=== PATIENT | male | born 1985 | race Caucasian/White ===

== ENCOUNTER 2023-11-14 23:33 | Emergency (ER) | payer SELFPAY ==
[~2023-11-14] VITALS: Ht 180.3 cm; Wt 150.0 kg
[2023-11-14 23:35] VITALS: O2SAT 97
[2023-11-15 08:17] VITALS: BP 150/88; PULSE 65; RESP 14; TEMP 36.83628; O2SAT 97
[2023-11-15] MEDS: LIDOCAINE HCL/PF 1% 10 MG/ML 5ML VIAL INFIL ONE (09:41)
[2023-11-15] MEDS: IBUPROFEN 600MG TABLET PO ONE (09:41)
[2023-11-15] MEDS: TETANUS, DIPHTHERIA, PERTUSSIS VAC/PF 0.5ML (>10YR OLD) IM ONE (09:46)
[2023-11-15] MEDS: BACITRACIN ZINC OINT UDPKT TOP ONE (09:49)
[2023-11-15] MEDS ORDERED: CEPH500C2 MT (10:28)
[2023-11-15] MEDS ORDERED: T3 PO (10:28)
[2023-11-15] MEDS: ACETAMINOPHEN WITH CODEINE 300/30MG TABLET PO NR (10:43)
== END 2023-11-15 10:58 | disposition home or self-care (01) ==
LOC: ER 23:33
DX: S61.212A Laceration without foreign body of right middle finger without damage to nail, initial encounter (principal); W26.8XXA Contact with other sharp object(s), not elsewhere classified, initial encounter; Y93.89 Activity, other specified; Y92.89 Other specified places as the place of occurrence of the external cause; Y99.8 Other external cause status
CPT/HCPCS: 99283; 73140; 90715; 90471; J3490